=== PATIENT | female | born 1955 | race Caucasian/White ===

== ENCOUNTER 2016-10-18 08:00 | Outpatient (CLI) | payer MEDICAID | END 2016-10-18 23:59 | DX: I10 Essential (primary) hypertension (principal); E78.1 Pure hyperglyceridemia; E11.9 Type 2 diabetes mellitus without complications; E03.9 Hypothyroidism, unspecified ==

== ENCOUNTER 2016-10-25 | Outpatient (CLI) | payer MEDICAID | END 2016-10-25 10:45 | disposition home or self-care (01) | DX: I10 Essential (primary) hypertension (principal) ==

== ENCOUNTER 2016-11-06 11:00 | Outpatient (CLI) | payer MEDICAID | END 2016-11-06 11:01 | disposition home or self-care (01) | DX: D17.23 Benign lipomatous neoplasm of skin and subcutaneous tissue of right leg (principal); L72.3 Sebaceous cyst ==

== ENCOUNTER 2017-01-17 08:44 | Outpatient (CLI) | payer MEDICAID | END 2017-01-17 08:45 | disposition home or self-care (01) | DX: I10 Essential (primary) hypertension (principal); E11.9 Type 2 diabetes mellitus without complications ==

== ENCOUNTER 2017-02-27 09:31 | Emergency (ER) | payer MEDICAID ==
[2017-02-27] MEDS ORDERED: cefTRIAXone 1 GM VIAL IM STA (10:04)
--- NOTE | 2017-02-27 10:06 | ED Physician Documentation ---
PD HPI ANIMAL BITE - Stated complaint Stated Complaint: CAT BITE - Chief complaint Chief Complaint: Wound - History obtained from History obtained from: Patient - History of Present Illness Location of injury(ies): Right hand Details of the event: Cat, Well appearing, Immunized, Provoked, Animal can be observed Timing - onset: How many days ago (2) Timing - duration: Days (2) Timing - details: Gradual onset, Still present Improved by: Rest Worsened by: Moving, Palpating Associated symptoms: Swelling, Discolored Similar symptoms before: Has not had sx before Recently seen: Not recently seen - Additional information Additional information: 62-year-old female with a history of type 2 diabetes hypertension COPD and thyroid disease has been bitten by her cat when she was rescuing out of a tree 2 nights ago. 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 She is here this morning with persistent swelling and pain of her right hand and forearm. Review of Systems Constitutional: reports: Chills, Fatigue. denies: Fever Eyes: denies: Decreased vision Ears: denies: Ear pain Nose: denies: Congestion Throat: denies: Sore throat Cardiac: denies: Chest pain / pressure Respiratory: reports: Cough. denies: Dyspnea GI: denies: Abdominal Pain, Nausea, Vomiting : denies: Dysuria, Frequency Skin: denies: Rash Musculoskeletal: reports: Extremity pain, Extremity swelling. 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 - Present Medications Home Medications: Ambulatory Orders Medication Instructions Recorded Confirmed Levothyroxine [Synthroid] 50 mcg PO QDAC 06/28/13 02/27/17 Levothyroxine [Synthroid] 200 mcg PO QDAC 06/28/13 02/27/17 Lisinopril [Zestril] 20 mg PO DAILY 06/28/13 02/27/17 Metoprolol Succinate [Toprol Xl] 100 mg PO DAILY 06/28/13 02/27/17 Naproxen Sodium [Naprelan] 500 mg PO .FREQ PRN 06/28/13 02/27/17 [place]-3 Acid Ethyl Esters [Lovaza] 1 gm PO DAILY 06/28/13 02/27/17 hydroCHLOROthiazide [Hydrodiuril] 25 mg PO DAILY 06/28/13 02/27/17 SITagliptin [Januvia] 100 mg PO DAILY #30 tablet 11/27/15 02/27/17 Amox/Clav 875/125 [Augmentin] 1 each PO Q12H #20 tablet 02/27/17 Pantoprazole [Protonix] 1 tab PO DAILY 02/27/17 02/27/17 - Allergies Allergies/Adverse Reactions: Allergies Allergy/AdvReac Type Severity Reaction Status Date / Time glimepiride [From Amaryl] Allergy Nausea Verified 02/27/17 09:37 metformin Allergy Respiratory Verified 02/27/17 09:37 - Social History Does the pt smoke?: No Smoking Status: Never smoker Does the pt drink ETOH?: Yes Does the pt have substance abuse?: Yes Substance Use and Type: Marijuana - Immunizations Immunizations are current?: Yes PD ED PE NORMAL - Vitals Vital signs reviewed: Yes (Hypertensive) - General General: Alert and oriented X 3, No acute distress, Well developed/nourished - HEENT HEENT: Atraumatic, PERRL - Neck Neck: Supple, no meningeal sign - Respiratory Respiratory: No respiratory distress - Back Back: No CVA TTP, No spinal TTP - Derm Derm: Normal color, Warm and dry, No rash - Extremities Extremities: Other (There is swelling erythema and tenderness to the dorsum of the right hand over the mid second metacarpal and the swelling and erythema extends to the entire dorsum of the hand and proximal forearm. There is lymphangitic streaking to the elbow.) Results - Vitals Vitals: Vital Signs - 24 hr 02/27/17 09:36 Temperature 36.6 C Heart Rate 77 Respiratory 18 Rate Blood Pressure 147/99 H O2 Saturation 99 Oxygen O2 Source Room air PD MEDICAL DECISION MAKING - ED course Complexity details: reviewed old records, considered differential, d/w patient ED course: 62-year-old female with a cat bite and cellulitis is administered Rocephin IM in the emergency department and we will put her on some Augmentin. Departure - Departure Disposition: 01 Home, Self Care Clinical Impression: Pasteurella cellulitis due to cat bite Condition: Stable Instructions: ED Staph Infec Abx Tx Only, ED Bite Cat Follow-Up: Max Melgar MD [Primary Care Provider] - Prescriptions: Amox/Clav 875/125 [Augmentin] 1 each PO Q12H #20 tablet
[2017-02-27] MEDS ORDERED: TETANUS/DIPHTHERIA/PERTUSSIS 0.5 ML SYRINGE IM ONE ×2 (10:08→10:17)
[2017-02-27] MEDS ORDERED: LIDOCAINE 1% 2 ML VIAL ONE (10:17)
[2017-02-27] MEDS ORDERED: cefTRIAXone 1 GM VIAL ONE (10:17)
[2017-02-27 10:42] VITALS: BP 140/81
== END 2017-02-27 10:53 | disposition home or self-care (01) ==
LOC: ED 09:31
DX: S61.451A Open bite of right hand, initial encounter (principal); L03.113 Cellulitis of right upper limb; W55.01XA Bitten by cat, initial encounter; Y93.K9 Activity, other involving animal care; Z23 Encounter for immunization; I10 Essential (primary) hypertension; E11.9 Type 2 diabetes mellitus without complications; E03.9 Hypothyroidism, unspecified; Z96.649 Presence of unspecified artificial hip joint; Z79.84 Long term (current) use of oral hypoglycemic drugs
CPT/HCPCS: 90471; 96372; 99283

== ENCOUNTER 2017-11-11 12:17 | Outpatient (CLI) | payer MEDICAID | END 2017-11-11 12:18 | disposition critical access hospital (66) | LOC: EMS 12:17 | PROVIDERS: ATTEND Surgery | DX: R03.0 Elevated blood-pressure reading, without diagnosis of hypertension (principal) | CPT/HCPCS: A0425; A0429 ==

== ENCOUNTER 2017-11-11 12:35 | Emergency (ER) | payer MEDICAID ==
--- NOTE | 2017-11-11 13:22 | ED Physician Documentation ---
PD HPI DYSPNEA - Stated complaint Stated Complaint: HTN - Chief complaint Chief Complaint: Resp - History obtained from History obtained from: Patient - History of Present Illness Timing - onset: How many days ago (several days) Timing - onset during: Other (cough with URI symptoms) Timing - duration: Days Timing - details: Gradual onset, Still present Inciting event(s): URI (cough and congestion with sore throat and runny nose. Has strong coug and is noting lower right abd pain in area of prior mesh repair of hernia. Feels like this is bulging with cough. She had also had injury stepping through floorboard with some pull/muscle strain of abd.) Worsened by: Coughing Associated symptoms: Fever, Cough, Wheezing, Other (lower abd pain, and noted her BP was elevated as well.). No: Hemoptysis, Chest pain / discomfort Similar symptoms before: Has not had sx before Recently seen: Not recently seen Review of Systems Constitutional: reports: Fever, Chills, Myalgias Nose: reports: Rhinorrhea / runny nose, Congestion Throat: reports: Sore throat Cardiac: denies: Chest pain / pressure Respiratory: reports: Dyspnea, Cough, Wheezing GI: reports: Abdominal Pain. denies: Nausea, Vomiting, Diarrhea Skin: denies: Rash, Lesions Musculoskeletal: denies: Extremity swelling Neurologic: reports: Generalized weakness. 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 - Present Medications Home Medications: Ambulatory Orders Medication Instructions Recorded Confirmed Levothyroxine [Synthroid] 50 mcg PO QDAC 06/28/13 11/11/17 Levothyroxine [Synthroid] 200 mcg PO QDAC 06/28/13 11/11/17 Lisinopril [Zestril] 20 mg PO DAILY 06/28/13 11/11/17 Metoprolol Succinate [Toprol Xl] 100 mg PO DAILY 06/28/13 11/11/17 Naproxen Sodium [Naprelan] 500 mg PO .FREQ PRN 06/28/13 11/11/17 [place]-3 Acid Ethyl Esters [Lovaza] 1 gm PO DAILY 06/28/13 11/11/17 hydroCHLOROthiazide [Hydrodiuril] 25 mg PO DAILY 06/28/13 11/11/17 SITagliptin [Januvia] 100 mg PO DAILY #30 tablet 11/27/15 11/11/17 Amox/Clav 875/125 [Augmentin] 1 each PO Q12H #20 tablet 02/27/17 11/11/17 Pantoprazole [Protonix] 1 tab PO DAILY 02/27/17 11/11/17 Benzonatate [Tessalon] 100 mg PO TID PRN #25 capsule 11/11/17 Dexamethasone [Decadron] 4 mg PO DAILY #5 tablet 11/11/17 HYDROcod/ACETAM 5/325 [[place] 5/325] 1 tab PO Q6H PRN #15 tablet 11/11/17 Metoclopramide [Reglan] 10 mg PO Q6H PRN #20 tablet 11/11/17 - Allergies Allergies/Adverse Reactions: Allergies Allergy/AdvReac Type Severity Reaction Status Date / Time glimepiride [From Amaryl] Allergy Nausea Verified 11/11/17 13:01 metformin Allergy Respiratory Verified 11/11/17 13:01 promethazine [From Phenergan] AdvReac Emesis Verified 11/11/17 15:08 - Social History Does the pt smoke?: No Smoking Status: Never smoker Does the pt drink ETOH?: Yes Does the pt have substance abuse?: Yes - Immunizations Immunizations are current?: Yes - POLST Patient has POLST: No PD ED PE NORMAL - Vitals Vital signs reviewed: Yes - General General: Alert and oriented X 3, No acute distress, Well developed/nourished - HEENT HEENT: Ears normal, Moist mucous membranes, Pharynx benign - Neck Neck: Supple, no meningeal sign, No adenopathy - Cardiac Cardiac: RRR (tachycardic but regular. ), No murmur - Respiratory Respiratory: No respiratory distress, Other (wheezing noted scattered. No coarse sounds. ) - Abdomen Abdomen: Normal bowel sounds, Soft, Non distended, No organomegaly, Other ( tenderness without bulging around RLQ area with prior surgical scar noted. Some mild general protrusion below the mesh area with coughing. ) - Female Female : Deferred - Rectal Rectal: Deferred - Back Back: No CVA TTP - Derm Derm: Normal color, Warm and dry - Extremities Extremities: No deformity, No tenderness to palpate, Normal ROM s pain, No edema , No calf tenderness / cord - Neuro Neuro: Alert and oriented X 3, No motor deficit, Normal speech Results - Vitals Vitals: Oxygen O2 Source Room air - Rads (name of study) abd CT Radiology: Prelim report reviewed (no signs of hernia. There is thinning of muscle around the prior mesh surgical repair. ) chest xray Radiology: Prelim report reviewed (no infiltrates) PD MEDICAL DECISION MAKING - ED course Complexity details: reviewed results, considered differential (she has strong cough with URI symptoms, and was feeling pressure around prior mesh repair of hernia. Concerned for recurrent hernia. This area is hurting. Also noted her BP to be elevated. ), d/w patient Departure - Departure Disposition: 01 Home, Self Care Clinical Impression: Bronchitis Abdominal pain Qualifiers: Abdominal location: lower abdomen, unspecified Qualified Code(s): R10.30 - Lower abdominal pain, unspecified Hypertension Qualifiers: Hypertension type: unspecified secondary hypertension Qualified Code(s): I15.9 - Secondary hypertension, unspecified Condition: Stable Record reviewed to determine appropriate education?: Yes Instructions: ED Upper Resp Infec Abx Tx Follow-Up: Max Melgar MD [Primary Care Provider] - Jorge A Zamudio MD [Provider Admit Priv/Credential] - Prescriptions: Benzonatate [Tessalon] 100 mg PO TID PRN #25 capsule PRN Reason: Cough Dexamethasone [Decadron] 4 mg PO DAILY #5 tablet HYDROcod/ACETAM 5/325 [[place] 5/325] 1 tab PO Q6H PRN #15 tablet PRN Reason: Pain Metoclopramide [Reglan] 10 mg PO Q6H PRN #20 tablet PRN Reason: Nausea / Vomiting Comments: Continue usual medications for blood pressure and all else. The CT scan of the abdomen showed there to be some weakness of the abdominal muscles around the prior hernia repair and the mesh but no true hernia now. Follow-up with surgery regarding any potential treatment of it. For the cough, since you have sensitivities to the inhalers, we will choose those. Take Tessalon if needed for cough and hydrocodone if needed for cough and belly pain can be used for either. Decadron steroid will help with the irritation in the bronchioles and decrease the cough as well. Follow-up with your primary care in the next several days. Discharge Date/Time: 11/11/17 16:45
[2017-11-11] MEDS ORDERED: BENZONATATE 100 MG CAPSULE PO STA (13:35)
[2017-11-11] MEDS ORDERED: HYDROcod/ACETAM 5/325 MG TABLET PO STA (13:35)
[2017-11-11] MEDS ORDERED: DEXAMETHASONE 10 MG/ML VIAL PO STA (13:35)
[2017-11-11] MEDS ORDERED: LEVALBUTEROL 1.25 MG/3 ML NEB INH STA (13:35)
--- NOTE | 2017-11-11 13:53 | XRAY Preliminary Report ---
Exam: XR CHEST 2 VIEW X-RAY IMPRESSION: No acute cardiopulmonary abnormality. [facility] SITE ID: [id number]
--- NOTE | 2017-11-11 13:54 | XRAY Report ---
EXAM: CHEST RADIOGRAPHY EXAM DATE: 11/11/2017 01:17 PM. CLINICAL HISTORY: Cough. COMPARISON: CT chest with contrast 12/19/2006. TECHNIQUE: 2 views. FINDINGS: Lungs/Pleura: No focal opacities evident. No pleural effusion. No pneumothorax. Mediastinum: Heart and mediastinal contours are unremarkable. Other: None. IMPRESSION: No acute cardiopulmonary abnormality. [facility] Referring Provider Line: [phone] SITE ID: [id number]
[2017-11-11] MEDS ORDERED: METOPROLOL SUCCINATE 50 MG TABLET PO STA (14:21)
[2017-11-11] MEDS ORDERED: ONDANSETRON ODT 4 MG TABLET TL STA (14:57)
[2017-11-11] MEDS ORDERED: PROMETHAZINE 25 MG/1 ML VIAL IM STA (14:57)
--- NOTE | 2017-11-11 15:02 | CT Report ---
EXAM: CT ABDOMEN AND PELVIS EXAM DATE: 11/11/2017 02:22 PM. CLINICAL HISTORY: RLQ pain after fall, ? Recurrent hernia. COMPARISONS: CT KUB 01/11/2016. TECHNIQUE: Routine helical CT imaging was performed through the abdomen and pelvis while the patient performed the Valsalva maneuver. IV contrast: No. Enteric contrast: No. Reconstructions: Coronal and sagittal. In accordance with CT protocol optimization, one or more of the following dose reduction techniques w ere utilized for this exam: automated exposure control, adjustment of mA and/or KV based on patient s ize, or use of iterative reconstructive technique. FINDINGS: Lung Bases: Unremarkable. Liver: Unremarkable except for minimal focal fatty infiltration in the medial left lobe adjacent to t he fissure for the ligamentum teres. Gallbladder/Bile Ducts: Unremarkable. Spleen: Unremarkable. Pancreas: Unremarkable. Adrenal Glands: Normal. Kidneys: 2 mm and 3 mm calculi in the anterior lower left kidney. No hydronephrosis. Right kidney unr emarkable. Peritoneal Cavity/Bowel: Unopacified stomach and small bowel are nondistended. There is an anastomoti c staple line at the upper ascending ileocolic anastomosis. There is no significant formed stool in t he colon. There is minimal sigmoid colon diverticulosis. There is no pericolonic fat stranding. There is an approximately 3.5 cm anterior rectocele. There is no lymphadenopathy, ascites, or pneumoperito neum. Pelvic Organs: The bladder is empty. Uterus is surgically absent. No gross adnexal masses are identif ied. Vasculature: There is mild aortoiliac atherosclerotic calcification without abnormal dilation. Bones: There is mild multilevel lower thoracic and upper lumbar degenerative disk disease. There is a left total hip arthroplasty causing beam hardening artifact. Other: As before, there is mid to lower abdominal diastases recti. As before, there is mesh with meta llic anchors along the deep fascia of the mid to lower anterior abdominal wall. There is mild broad a nterior bulging of intra-abdominal fat between diastatic rectus muscles deep to the mesh, similar to before, without discrete hernia. IMPRESSION: 1. Mid to lower midline anterior abdominal wall diastases recti and prior mesh repair. There is mild anterior bulging of intra-abdominal contents between the diastatic rectus muscles as before without d iscrete hernia. 2. Approximately 3.5 cm anterior rectocele. [facility] Referring Provider Line: [phone] SITE ID: [id number]
--- NOTE | 2017-11-11 15:02 | CT Preliminary Report ---
Exam: CT ABDOMEN/PELVIS W/O IMPRESSION: 1. Mid to lower midline anterior abdominal wall diastases recti and prior mesh repair. There is mild anterior bulging of intra-abdominal contents between the diastatic rectus muscles as before without d iscrete hernia. 2. Approximately 3.5 cm anterior rectocele. [facility] SITE ID: [id number]
[2017-11-11] MEDS ORDERED: diphenhydrAMINE ELIXIR 25 MG/10 ML UDC PO STA (15:15)
[2017-11-11 16:11] VITALS: BP 174/118
== END 2017-11-11 16:45 | disposition home or self-care (01) ==
LOC: EDUNIT# → ED 12:35
DX: J40 Bronchitis, not specified as acute or chronic (principal); J44.9 Chronic obstructive pulmonary disease, unspecified; R10.30 Lower abdominal pain, unspecified; E11.9 Type 2 diabetes mellitus without complications; E03.9 Hypothyroidism, unspecified; Z96.649 Presence of unspecified artificial hip joint
CPT/HCPCS: 71046; 74176; 99283; A9270; Q0162; 94640

== ENCOUNTER 2017-12-03 08:08 | Outpatient (CLI) | payer MEDICAID ==
[2017-12-03 13:08] LABS: CREATININE 1.1 mg/dL (0.4-1.0)
[2017-12-03 13:51] LABS: HB2 TOTAL 12.9 g/dL; HEMOGLOBIN A1C 1.25 g/dL
== END 2017-12-03 08:09 | disposition home or self-care (01) ==
LOC: LAB.N 08:08
PROVIDERS: ATTEND Family Medicine
DX: E11.9 Type 2 diabetes mellitus without complications (principal)
CPT/HCPCS: 36415; 80048; 83036

== ENCOUNTER 2017-12-03 14:10 | Outpatient (CLI) | payer MEDICAID ==
--- NOTE | 2017-12-04 13:03 | XRAY Report ---
RIGHT KNEE THREE VIEWS: 12/03/2017 HISTORY: Knee pain. COMPARISON: None. FINDINGS: Three views of the right knee show medial and lateral meniscal chondrocalcinosis. There is narrowing and spurring of the lateral greater than medial knee joint. Mild patellar articular surface spurring. No fracture or malalignment. Possible small joint effusion. Cannot exclude a Thomas's cyst. Vascular calcification present. IMPRESSION: MILD TO MODERATE TRICOMPARTMENTAL DEGENERATIVE CHANGE RIGHT KNEE, MOST MARKED LATERAL KNEE JOINT. TD: 12/04/2017 13:02 [facility]
== END 2017-12-03 14:11 | disposition home or self-care (01) ==
LOC: DI.N 14:10
PROVIDERS: ATTEND Family Medicine
DX: M17.11 Unilateral primary osteoarthritis, right knee (principal)

== ENCOUNTER 2018-03-13 11:30 | Outpatient (CLI) | payer MEDICAID | END 2018-03-13 11:31 | disposition home or self-care (01) | LOC: LAB.R 11:30 | PROVIDERS: ATTEND Family Medicine | DX: M25.562 Pain in left knee (principal) ==

== ENCOUNTER 2018-04-15 10:13 | Outpatient (CLI) | payer MEDICAID ==
[2018-04-15 12:05] LABS: BASOPHILS % (AUTO) 0.6 %; EOSINOPHILS # (AUTO) 0.1 10^3/uL (0.0-0.7); EOSINOPHILS % (AUTO) 1.4 %; HGB - HEMOGLOBIN 11.5 g/dL (12.0-16.0); LYMPHOCYTES # (AUTO) 2.1 10^3/uL (1.5-3.5); MEAN CORPUSCULAR HEMOGLOBIN 29.4 pg (27.0-31.0); MEAN CORPUSCULAR HGB CONC 34.6 g/dL (32.0-36.0); MEAN CORPUSCULAR VOLUME 84.9 fL (81.0-99.0); MEAN PLATELET VOLUME 8.6 fL (7.9-10.8); MONOCYTES # (AUTO) 0.4 10^3/uL (0.0-1.0); MONOCYTES % (AUTO) 5.1 %; NEUTROPHILS # (AUTO) 5.4 10^3/uL (1.5-6.6); NEUTROPHILS % (AUTO) 66.9 %; PLT - PLATELET COUNT 345 10^3/uL (130-450)
[2018-04-15 12:40] LABS: ALBUMIN/GLOBULIN RATIO 1.1 (1.0-2.2); BILIRUBIN,TOTAL 0.4 mg/dL (0.2-1.0); CALCIUM 9.5 mg/dL (8.5-10.3); TOTAL PROTEIN 7.6 g/dL (6.7-8.2)
[2018-04-15 12:44] LABS: HB2 TOTAL 11.4 g/dL; HEMOGLOBIN A1C 1.04 g/dL; HEMOGLOBIN A1C % 10.5 % (4.6-6.2)
[2018-04-15 12:50] LABS: THYROID STIMULATING HORMONE < 0.08 uIU/mL (0.34-5.60)
[2018-04-15 12:52] LABS: FREE T4 (FREE THYROXINE) 1.72 ng/dL (0.58-1.64)
== END 2018-04-15 10:14 | disposition home or self-care (01) ==
LOC: LAB.N 10:13
PROVIDERS: ATTEND Family Medicine
DX: E11.65 Type 2 diabetes mellitus with hyperglycemia (principal); E78.1 Pure hyperglyceridemia; E03.9 Hypothyroidism, unspecified
CPT/HCPCS: 36415; 80053; 83036; 84439; 84443; 85025

== ENCOUNTER 2018-07-31 08:00 | Outpatient (CLI) | payer MEDICAID ==
[2018-07-31 19:32] LABS: CALCIUM 9.5 mg/dL (8.5-10.3)
[2018-07-31 19:43] LABS: THYROID STIMULATING HORMONE 4.9 uIU/mL (0.34-5.60)
[2018-07-31 19:45] LABS: FREE T4 (FREE THYROXINE) 0.94 ng/dL (0.58-1.64)
== END 2018-07-31 23:59 | disposition home or self-care (01) ==
LOC: LAB.N 08:00
PROVIDERS: ATTEND Family Medicine
DX: E03.9 Hypothyroidism, unspecified (principal); E11.65 Type 2 diabetes mellitus with hyperglycemia
CPT/HCPCS: 36415; 80048; 84439; 84443

== ENCOUNTER 2018-09-17 08:00 | Outpatient (CLI) | payer MEDICAID ==
[2018-09-17 19:25] LABS: HB2 TOTAL 12.9 g/dL; HEMOGLOBIN A1C 0.82 g/dL
== END 2018-09-17 23:59 | disposition home or self-care (01) ==
LOC: LAB.N 08:00
PROVIDERS: ATTEND Nurse Practitioner
DX: E11.65 Type 2 diabetes mellitus with hyperglycemia (principal)
CPT/HCPCS: 36415; 83036

== ENCOUNTER 2018-09-17 14:36 | Outpatient (CLI) | payer MEDICAID ==
--- NOTE | 2018-09-18 15:23 | XRAY Report ---
Reason: DEGENERATIVE JOINT DISEASE Procedure Date: 09/17/2018 Accession Number: [id number] / [id number] Procedure: XRN - Knee 3 View BILAT CPT Code: FULL RESULT: EXAMS: 1. Right Knee Radiography 2. Left Knee Radiography EXAM DATE:09/17/2018 03:02 PM. CLINICAL HISTORY:DEGENERATIVE JOINT DISEASE. COMPARISON: KNEE 3 VIEW RT 12/03/2017 2:30 PM. TECHNIQUE: 3 views each. FINDINGS: Right Knee: Bones: No acute fracture or dislocation. Joints: Moderate to severe degenerative changes of the lateral compartment, including joint space narrowing and marginal osteophyte formation. Mild to moderate degenerative changes of the patellofemoral compartment. Mild narrowing of the medial compartment. Possible calcified intracapsular bodies in the superior joint recess. Small joint effusion. Soft Tissues: Atherosclerotic plaques in the popliteal artery. Left Knee: Bones: No acute fracture or dislocation. Joints: There is mild to moderate tricompartmental degenerative joint disease, which is mostly manifested by joint space narrowing. No significant osteophyte formation. No joint effusion. Soft Tissues: Normal. No soft tissue swelling. IMPRESSION: No acute fracture or dislocation of the right or left knees. Bilateral tricompartmental degenerative joint disease, left worse than right, as described above. Small right knee joint effusion. Possible calcified intracapsular bodies in the right knee. Consider further evaluation with MRI as clinically indicated. [facility]
== END 2018-09-17 14:37 | disposition home or self-care (01) ==
LOC: DI.N 14:36
PROVIDERS: ATTEND Nurse Practitioner
DX: M17.0 Bilateral primary osteoarthritis of knee (principal)

== ENCOUNTER 2018-09-17 15:39 | Outpatient (CLI) | payer MEDICAID | END 2018-09-17 15:40 | disposition critical access hospital (66) | LOC: EMS 15:39 | PROVIDERS: ATTEND Surgery | DX: S89.92XA Unspecified injury of left lower leg, initial encounter (principal); W01.0XXA Fall on same level from slipping, tripping and stumbling without subsequent striking against object, initial encounter; Y93.02 Activity, running; Y92.481 Parking lot as the place of occurrence of the external cause | CPT/HCPCS: A0425; A0429 ==

== ENCOUNTER 2018-11-03 08:02 | Outpatient (CLI) | payer MEDICAID ==
[2018-11-03 20:09] LABS: ALBUMIN 4.2 g/dL (3.2-5.5); ALBUMIN/GLOBULIN RATIO 1.4 (1.0-2.2); ALKALINE PHOSPHATASE 61 IU/L (42-121); ALT ALANINE AMINOTRANSFERASE 17 IU/L (10-60); AST ASPARTATE AMINOTRANSFERASE 21 IU/L (10-42); BILIRUBIN,TOTAL 0.6 mg/dL (0.2-1.0); BUN - BLOOD UREA NITROGEN 26 mg/dL (6-20); CALCIUM 9.7 mg/dL (8.5-10.3); CARBON DIOXIDE - CO2 25 mmol/L (21-32); CHLORIDE 101 mmol/L (101-111); CHOL/HDL RATIO 5.8 (<4.4); CHOLESTEROL 210 mg/dL; CREATININE 1.1 mg/dL (0.4-1.0); GFR - MDRD 50 (>89); GLUCOSE 126 mg/dL (70-100); HDL CHOLESTEROL 36 mg/dL; SODIUM 137 mmol/L (135-145); TOTAL PROTEIN 7.2 g/dL (6.7-8.2)
[2018-11-03 20:21] LABS: BILIRUBIN,URINE NEGATIVE (NEGATIVE); GLUCOSE, URINE (UA) NEGATIVE (NEGATIVE); KETONES,URINE (UA) NEGATIVE (NEGATIVE); LEUKOCYTE ESTERASE, URINE TRACE (NEGATIVE); NITRITE,URINE NEGATIVE (NEGATIVE); OCCULT BLOOD,URINE TRACE-INTA (NEGATIVE); PROTEIN,URINE 100 mg/dL (NEGATIVE); UROBILINOGEN,URINE 0.2 (NORMAL) E.U./dL (NORMAL)
[2018-11-03 20:35] LABS: BASOPHILS # (AUTO) 0.1 10^3/uL (0.0-0.1); BASOPHILS % (AUTO) 1.1 %; EOSINOPHILS # (AUTO) 0.1 10^3/uL (0.0-0.7); EOSINOPHILS % (AUTO) 1.1 %; HGB - HEMOGLOBIN 12.5 g/dL (12.0-16.0); LYMPHOCYTES % (AUTO) 24.1 %; MEAN CORPUSCULAR HEMOGLOBIN 29.3 pg (27.0-31.0); MEAN CORPUSCULAR HGB CONC 33.4 g/dL (32.0-36.0); MEAN CORPUSCULAR VOLUME 87.7 fL (81.0-99.0); MONOCYTES # (AUTO) 0.4 10^3/uL (0.0-1.0); MONOCYTES % (AUTO) 5.4 %; NEUTROPHILS # (AUTO) 5.7 10^3/uL (1.5-6.6); NEUTROPHILS % (AUTO) 68.3 %; PLT - PLATELET COUNT 279 10^3/uL (130-450); RED BLOOD COUNT 4.26 10^6/uL (4.20-5.40); RED CELL DISTRIBUTION WIDTH 13.7 % (12.0-15.0); WHITE BLOOD COUNT 8.3 x10^3/uL (4.8-10.8)
[2018-11-03 20:43] LABS: CLARITY,URINE CLOUDY (CLEAR)
[2018-11-03 20:44] LABS: BACTERIA,URINE Rare /HPF (None Seen); RBC,URINE 0-5 /HPF (0-5); SQUAMOUS EPITHELIAL CELL,UR MANY Squamous (<= Few)
[2018-11-03 20:56] LABS: LDL CHOLESTEROL,DIRECT 106 mg/dL; LDLD/HDL RATIO 2.9 (<4.4)
[2018-11-03 21:10] LABS: CREATININE,URINE 137.6 mg/dL; MICROALBUM/CREATININE RATIO,UR 763.1 ug/mg (<30.0)
[2018-11-03 21:25] LABS: HEMOGLOBIN A1C 0.93 g/dL; HEMOGLOBIN A1C % 8.2 % (4.6-6.2)
== END 2018-11-03 23:59 | disposition home or self-care (01) ==
LOC: LAB.N 08:02
PROVIDERS: ATTEND Nurse Practitioner
DX: E11.65 Type 2 diabetes mellitus with hyperglycemia (principal); R30.0 Dysuria; I10 Essential (primary) hypertension; Z79.4 Long term (current) use of insulin
CPT/HCPCS: 36415; 80053; 80061; 81001; 82043; 82570; 83036; 83721; 84443; 85025; 87086

== ENCOUNTER 2019-05-17 10:29 | Outpatient (CLI) | payer MEDICAID ==
[2019-05-17 13:36] LABS: HB2 TOTAL 11.8 g/dL; HEMOGLOBIN A1C 0.73 g/dL; HEMOGLOBIN A1C % 7.8 % (4.6-6.2)
== END 2019-05-17 23:59 | disposition home or self-care (01) ==
LOC: LAB.N 10:29
PROVIDERS: ATTEND Nurse Practitioner Gerontology
DX: E11.8 Type 2 diabetes mellitus with unspecified complications (principal); Z79.4 Long term (current) use of insulin
CPT/HCPCS: 36415; 83036

== ENCOUNTER 2019-09-08 08:00 | Outpatient (CLI) | payer MEDICAID ==
[2019-09-08 18:14] LABS: BASOPHILS # (AUTO) 0.1 10^3/uL (0.0-0.1); BASOPHILS % (AUTO) 0.4 %; EOSINOPHILS # (AUTO) 0.1 10^3/uL (0.0-0.7); HGB - HEMOGLOBIN 11.1 g/dL (12.0-16.0); LYMPHOCYTES # (AUTO) 1.7 10^3/uL (1.5-3.5); LYMPHOCYTES % (AUTO) 14.5 %; MEAN CORPUSCULAR HGB CONC 32.3 g/dL (32.0-36.0); MEAN CORPUSCULAR VOLUME 89.8 fL (81.0-99.0); MEAN PLATELET VOLUME 10.6 fL (7.9-10.8); MONOCYTES # (AUTO) 0.9 10^3/uL (0.0-1.0); MONOCYTES % (AUTO) 7.5 %; NEUTROPHILS # (AUTO) 8.9 10^3/uL (1.5-6.6); NEUTROPHILS % (AUTO) 76.2 %; PLT - PLATELET COUNT 433 10^3/uL (130-450); RED BLOOD COUNT 3.83 10^6/uL (4.20-5.40); RED CELL DISTRIBUTION WIDTH 12.9 % (12.0-15.0); WHITE BLOOD COUNT 11.7 x10^3/uL (4.8-10.8)
[2019-09-08 18:20] LABS: ALBUMIN 3.9 g/dL (3.2-5.5); ALBUMIN/GLOBULIN RATIO 1.1 (1.0-2.2); BILIRUBIN,TOTAL 0.7 mg/dL (0.2-1.0); CALCIUM 9.6 mg/dL (8.5-10.3); CREATININE 1.3 mg/dL (0.4-1.0); TOTAL PROTEIN 7.6 g/dL (6.7-8.2)
== END 2019-09-08 23:59 | disposition home or self-care (01) ==
LOC: LAB.N 08:00
PROVIDERS: ATTEND Family Medicine
DX: N20.0 Calculus of kidney (principal); N39.0 Urinary tract infection, site not specified
CPT/HCPCS: 36415; 80053; 81001; 81003; 85025; 87086

== ENCOUNTER 2019-10-27 10:30 | Outpatient (CLI) | payer MEDICAID | END 2019-10-27 23:59 | disposition home or self-care (01) | LOC: LAB.R 10:30 | PROVIDERS: ATTEND Family Medicine | DX: N39.0 Urinary tract infection, site not specified (principal) | CPT/HCPCS: 87086 ==

== ENCOUNTER 2019-12-23 08:00 | Outpatient (CLI) | payer MEDICAID ==
[2019-12-23 17:58] LABS: ALBUMIN 4.2 g/dL (3.2-5.5); ALBUMIN/GLOBULIN RATIO 1.3 (1.0-2.2); BILIRUBIN,TOTAL 0.3 mg/dL (0.2-1.0); CALCIUM 9.6 mg/dL (8.5-10.3); CREATININE 0.9 mg/dL (0.4-1.0); PHOSPHORUS 3.9 mg/dL (2.5-4.6); TOTAL PROTEIN 7.5 g/dL (6.7-8.2); URIC ACID 4.4 mg/dL (2.6-7.2)
[2019-12-23 18:03] LABS: BILIRUBIN,URINE NEGATIVE (NEGATIVE); GLUCOSE, URINE (UA) NEGATIVE (NEGATIVE); KETONES,URINE (UA) NEGATIVE (NEGATIVE); LEUKOCYTE ESTERASE, URINE TRACE (NEGATIVE); NITRITE,URINE NEGATIVE (NEGATIVE); OCCULT BLOOD,URINE NEGATIVE (NEGATIVE); PROTEIN,URINE NEGATIVE (NEGATIVE); UROBILINOGEN,URINE 0.2 (NORMAL) E.U./dL (NORMAL)
[2019-12-23 18:07] LABS: CLARITY,URINE CLEAR (CLEAR)
[2019-12-23 18:30] LABS: BACTERIA,URINE None Seen /HPF (None Seen); RBC,URINE None Seen /HPF (0-5); SQUAMOUS EPITHELIAL CELL,UR FEW Squamous (<= Few)
== END 2019-12-23 23:59 | disposition home or self-care (01) ==
LOC: LAB.WCP 08:00
PROVIDERS: ATTEND Internal Medicine Nephrology
DX: N20.0 Calculus of kidney (principal); N18.3 Chronic kidney disease, stage 3 (moderate)
CPT/HCPCS: 36415; 80053; 81001; 83970; 84100; 84550; 87086

== ENCOUNTER 2019-12-30 12:43 | Outpatient (CLI) | payer MEDICAID ==
--- NOTE | 2019-12-30 18:09 | MRI Report ---
Reason: RT KNEE JOINT PAIN Procedure Date: 12/30/2019 Accession Number: [id number] / [id number] Procedure: MRI - Knee RT W/O CPT Code: Final Report FULL RESULT: EXAM: RIGHT KNEE MRI WITHOUT CONTRAST EXAM DATE: 12/30/2019 01:44 PM. CLINICAL HISTORY: Right knee joint pain. COMPARISON: KNEE 3 VIEW BILAT 09/17/2018 2:53 PM. TECHNIQUE: Multiplanar, multisequence T1-weighted and fluid-sensitive sequences of the knee without contrast. Other: None. FINDINGS: Cruciate ligaments: There is thickening and heterogenous increased intrasubstance signal within the otherwise intact anterior cruciate ligament. The posterior cruciate ligament appears intact. Medial meniscus: Intact. No tear is identified. Lateral meniscus: Complex tears and degeneration throughout the body and anterior horn. Ill-defined horizontal tear at the posterior horn with intrasubstance degeneration. Irregular lateral lobulated meniscal cyst formation extends superiorly. Collateral ligaments: The medial and fibular collateral ligaments appear intact. Bones and articular surfaces: Severe cartilage loss in the weightbearing lateral compartment. A small amount of patchy subchondral marrow edema. Mild cartilage thinning and surface irregularity in the medial and patellofemoral compartments. Small joint effusion. Synovitis at the lateral patellofemoral recess. Moderate sized popliteal cyst containing multiple loose bodies. Lobulated superior extension of the popliteal cyst superficial to the medial head gastrocnemius. Extensor mechanism: The patellar tendon and quadriceps insertion appear intact. IMPRESSION: 1. Lateral meniscus tears including complex tears and degeneration throughout the body and anterior horn as well as horizontal tear at the posterior horn. Lateral and superior meniscal cyst formation. 2. Severe lateral compartment osteoarthritis. 3. Moderate-sized popliteal cyst containing loose bodies. 4. Small joint effusion with synovitis in the lateral patellofemoral recess. 5. Mucoid degeneration and/or scarring involving the anterior cruciate ligament. [facility]
== END 2019-12-30 12:44 | disposition home or self-care (01) ==
LOC: DI 12:43
PROVIDERS: ATTEND Family Medicine
DX: S83.271A Complex tear of lateral meniscus, current injury, right knee, initial encounter (principal); S83.281A Other tear of lateral meniscus, current injury, right knee, initial encounter; M17.11 Unilateral primary osteoarthritis, right knee; M71.21 Synovial cyst of popliteal space [Baker], right knee; M25.461 Effusion, right knee; M65.9 Synovitis and tenosynovitis, unspecified

== ENCOUNTER 2020-05-19 08:00 | Outpatient (CLI) | payer MEDICAID ==
[2020-05-19 12:02] LABS: CALCIUM 9.1 mg/dL (8.5-10.3); CREATININE 1.3 mg/dL (0.4-1.0)
[2020-05-19 12:37] LABS: HEMOGLOBIN A1c% 7.6 % (4.27-6.07)
[2020-05-19 12:58] LABS: MICROALBUM/CREATININE RATIO,UR 1546.4 ug/mg (<30.0)
== END 2020-05-19 08:01 | disposition home or self-care (01) ==
LOC: LAB.WCP 08:00
PROVIDERS: ATTEND Family Medicine
DX: E11.65 Type 2 diabetes mellitus with hyperglycemia (principal); Z79.4 Long term (current) use of insulin
CPT/HCPCS: 36415; 80048; 82043; 82570; 83036

== ENCOUNTER 2020-07-29 09:31 | Outpatient (CLI) | payer MEDICAID | END 2020-07-29 09:32 | disposition critical access hospital (66) | LOC: EMS 09:31 | PROVIDERS: ATTEND Surgery | DX: R10.30 Lower abdominal pain, unspecified (principal); R11.0 Nausea | CPT/HCPCS: A0425; A0427 ==

== ENCOUNTER 2020-07-29 09:56 | Emergency (ER) | payer MEDICAID ==
[2020-07-29] MEDS ORDERED: MORPHINE 10 MG/ML VIAL IVP STA (10:26)
[2020-07-29 10:41] LABS: BASOPHILS # (AUTO) 0.1 10^3/uL (0.0-0.1); BASOPHILS % (AUTO) 0.5 %; EOSINOPHILS # (AUTO) 0.1 10^3/uL (0.0-0.7); EOSINOPHILS % (AUTO) 0.9 %; HGB - HEMOGLOBIN 11.7 g/dL (12.0-16.0); LYMPHOCYTES # (AUTO) 1.4 10^3/uL (1.5-3.5); LYMPHOCYTES % (AUTO) 10.6 %; MEAN CORPUSCULAR HEMOGLOBIN 29.5 pg (27.0-31.0); MEAN CORPUSCULAR VOLUME 89.6 fL (81.0-99.0); MEAN PLATELET VOLUME 9.8 fL (7.9-10.8); MONOCYTES # (AUTO) 0.6 10^3/uL (0.0-1.0); MONOCYTES % (AUTO) 4.4 %; NEUTROPHILS # (AUTO) 11.3 10^3/uL (1.5-6.6); NEUTROPHILS % (AUTO) 83.2 %; PLT - PLATELET COUNT 304 10^3/uL (130-450); RED BLOOD COUNT 3.96 10^6/uL (4.20-5.40); RED CELL DISTRIBUTION WIDTH 13.3 % (12.0-15.0); WHITE BLOOD COUNT 13.6 x10^3/uL (4.8-10.8)
[2020-07-29 10:55] LABS: ALBUMIN 3.6 g/dL (3.2-5.5); ALBUMIN/GLOBULIN RATIO 1.2 (1.0-2.2); BILIRUBIN,TOTAL 0.7 mg/dL (0.2-1.0); CREATININE 1.8 mg/dL (0.4-1.0); TOTAL PROTEIN 6.5 g/dL (6.7-8.2)
[2020-07-29] MEDS ORDERED: SODIUM CHLORIDE 0.9% 1,000 ML IV STA ×2 (10:56)
--- NOTE | 2020-07-29 10:56 | ED Physician Documentation ---
PD HPI ABD PAIN - Stated complaint Stated Complaint: RT FLANK PX - Chief complaint Chief Complaint: Abd Pain - History obtained from History obtained from: Patient - History of Present Illness Timing - onset: How many days ago (3) Timing - duration: Days (3) Pain level max: 9 Pain level now: 7 Quality: Aching, Pain Location: All over / everywhere Associated symptoms: No: Fever, Nausea, Vomiting, Hematemesis, Diarrhea, Constipation, Melena, Hematochezia, Dysuria, Hematuria Recently seen: Not recently seen - Additional information Additional information: 65-year-old female presents to the emergency department with abdominal pain for the past 3 days. She states it radiates from her back to her abdomen. States it is on both sides. Worse with movement. Nothing makes it better. She states she has never had pain like this before. She states she did have a "kidney surgery". She does not know what surgery was performed or why the surgery was performed. She states this was done at [facility]. Review of Systems Constitutional: denies: Fever, Chills Respiratory: denies: Cough : denies: Unable to Void, Incontinent Skin: denies: Rash Musculoskeletal: denies: Neck pain Neurologic: denies: Focal weakness, Numbness, Headache PD PAST MEDICAL HISTORY - Past Medical History Cardiovascular: Hypertension Respiratory: Asthma, COPD, Sleep apnea Neuro: None Endocrine/Autoimmune: Type 2 diabetes, HyPOthyroidism GI: GERD, Other : Renal insuffiency HEENT: None Psych: Depression Musculoskeletal: Osteoarthritis Derm: None - Past Surgical History Past Surgical History: Yes General: Bowel surgery, Other Ortho: 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 - Present Medications Home Medications: Ambulatory Orders Medication Instructions Recorded Confirmed Levothyroxine [Synthroid] 50 mcg PO QDAC 06/28/13 06/15/19 Levothyroxine [Synthroid] 200 mcg PO QDAC 06/28/13 06/15/19 Metoprolol Succinate [Toprol Xl] 100 mg PO BID 06/28/13 06/15/19 Naproxen Sodium [Naprelan] 500 mg PO BID PRN 06/28/13 06/15/19 [place]-3 Acid Ethyl Esters [Lovaza] 4 gm PO DAILY 06/28/13 06/15/19 hydroCHLOROthiazide [Hydrodiuril] 25 mg PO DAILY 06/28/13 06/15/19 lisinopriL [Zestril] 40 mg PO DAILY 06/28/13 06/15/19 SITagliptin [Januvia] 100 mg PO DAILY #30 tablet 11/27/15 06/15/19 Pantoprazole [Protonix] 1 tab PO BID 02/27/17 06/15/19 Albuterol Sulfate [Proair Hfa 1 - 2 puffs INH Q4H PRN 06/15/19 06/15/19 Inhaler] Atorvastatin Calcium 40 mg PO DAILY 06/15/19 06/15/19 Fluticasone/Salmeterol [Advair 1 each IH BID 06/15/19 06/15/19 250-50 Diskus] Insulin Glargine [Lantus Solostar] 40 unit SQ DAILY 06/15/19 06/15/19 Ketoconazole 30 gm TP BID PRN 06/15/19 06/15/19 NIFEdipine [Nifedipine ER] 30 mg PO DAILY 06/15/19 06/15/19 Cefdinir 300 mg PO BID #20 capsule 07/29/20 Ondansetron Odt [Zofran] 4 mg TL Q6H PRN #10 tablet 07/29/20 Oxycodone HCl/Acetaminophen 1 - 2 each PO Q6H PRN #14 tablet 07/29/20 [Percocet 5-325 mg Tablet] - Allergies Allergies/Adverse Reactions: Allergies Allergy/AdvReac Type Severity Reaction Status Date / Time glimepiride [From Amaryl] Allergy Nausea Verified 09/17/18 16:07 metformin Allergy Respiratory Verified 09/17/18 16:07 weed pollen Allergy Unknown Verified 06/15/19 09:48 wool Allergy Unknown Verified 06/15/19 09:48 omeprazole AdvReac Unknown Verified 06/14/19 17:26 promethazine [From Phenergan] AdvReac Emesis Verified 09/17/18 16:07 - Social History Does the pt smoke?: No Smoking Status: Never smoker Does the pt drink ETOH?: Yes Does the pt have substance abuse?: No - Immunizations Immunizations are current?: Yes - POLST Patient has POLST: No PD ED PE NORMAL - Vitals Vital signs reviewed: Yes - General General: Alert and oriented X 3, No acute distress, Well developed/nourished - HEENT HEENT: Moist mucous membranes - Neck Neck: Supple, no meningeal sign - Cardiac Cardiac: RRR, Strong equal pulses - Respiratory Respiratory: No respiratory distress, Clear bilaterally - Abdomen Abdomen: Soft, Non distended, Other (Diffusely tender to palpation. No peritoneal signs.) - Back Back: Other (Bilateral CVA tenderness, right greater than left) - Derm Derm: Warm and dry - Extremities Extremities: No deformity - Neuro Neuro: Alert and oriented X 3 - Psych Psych: Normal mood, Normal affect Results - Vitals Vitals: Vital Signs - 24 hr 07/29/20 07/29/20 07/29/20 09:58 10:11 10:40 Temperature 36.8 C Heart Rate 71 70 70 Respiratory 16 16 18 Rate Blood Pressure 144/88 H 142/86 H 103/76 O2 Saturation 97 100 99 07/29/20 07/29/20 11:30 12:25 Temperature Heart Rate 89 66 Respiratory 16 16 Rate Blood Pressure 113/73 129/94 H O2 Saturation 99 100 Oxygen O2 Source Room air - Labs Labs: Laboratory Tests 07/29/20 07/29/20 07/29/20 10:04 10:35 10:35 WBC 13.6 H RBC 3.96 L Hgb 11.7 L Hct 35.5 L MCV 89.6 MCH 29.5 MCHC 33.0 RDW 13.3 Plt Count 304 MPV 9.8 Neut # (Auto) 11.3 H Lymph # (Auto) 1.4 L [place] # (Auto) 0.6 Eos # (Auto) 0.1 Baso # (Auto) 0.1 Absolute Nucleated RBC 0.00 Nucleated RBC % 0.0 Sodium 139 Potassium 4.0 Chloride 105 Carbon Dioxide 23 Anion Gap 11.0 BUN 41 H Creatinine 1.8 H Estimated GFR (MDRD) 28 L Glucose 149 H Calcium 9.0 Total Bilirubin 0.7 AST 13 ALT 13 Alkaline Phosphatase 65 Total Protein 6.5 L Albumin 3.6 Globulin 2.9 Albumin/Globulin Ratio 1.2 Lipase 47 Urine Color YELLOW Urine Clarity CLEAR Urine pH 5.0 Ur Specific [place] >=1.030 H Urine Protein 30 H Urine Glucose (UA) NEGATIVE Urine Ketones NEGATIVE Urine Occult Blood NEGATIVE Urine Nitrite NEGATIVE Urine Bilirubin NEGATIVE Urine Urobilinogen 0.2 (NORMAL) Ur Leukocyte Esterase SMALL H Urine RBC 0-5 Urine WBC 6-10 H Ur Squamous Epith Cells FEW Squamous Urine Bacteria Few Ur Microscopic Review INDICATED Urine Culture Comments INDICATED - Rads (name of study) CT abd.pelvis Radiology: Prelim report reviewed, EMP read contemporaneously, See rad report (No evidence of acute abdominal process. ) PD MEDICAL DECISION MAKING - ED course Complexity details: reviewed results, re-evaluated patient, considered differential, d/w patient ED course: 65-year-old female presents to the emergency department abdominal and back pain. Appears to have pyelonephritis clinically. Positive UA. Given Rocephin. Pain well controlled. No acute findings on CT scan. No evidence of sepsis. No evidence of bacteremia. No evidence of ureteral stone. Patient counseled reg arding signs and symptoms for which I believe and urgent re-evaluation would be necessary. Patient with good understanding of and agreement to plan and is comfortable going home at this time This document was made in part using voice recognition software. While efforts are made to proofread this document, sound alike and grammatical errors may occur. Departure - Departure Disposition: 01 Home, Self Care Clinical Impression: Pyelonephritis Condition: Good Instructions: ED Kidney Infec Female Follow-Up: CRYSTAL GUILLEN MD [Primary Care Provider] - Within 1 week Prescriptions: Cefdinir 300 mg PO BID #20 capsule Oxycodone HCl/Acetaminophen [Percocet 5-325 mg Tablet] 1 - 2 each PO Q6H PRN #14 tablet PRN Reason: pain Ondansetron Odt [Zofran] 4 mg TL Q6H PRN #10 tablet PRN Reason: Nausea / Vomiting Comments: Take all antibiotics until gone. Return if you worsen. Follow-up with your doctor later this week for a recheck. Do not drink alcohol or drive while on narcotic pain medicine. Note that many narcotic pain relievers also contain tylenol/acetaminophen. Please ensure that your total dose of acetaminophen from all sources does not exceed 3 grams (3000mg) per day. You may constipated on this medication, take a stool softener such as "Colace" twice a day while you are on it. Also recommend a qyfy-sze-rtrgsby laxative such as senna or MiraLAX any day that you do not have a bowel movement. If you received narcotic pain medication in the emergency department, do not drive or operate machinery for the next 24 hours. Discharge Date/Time: 07/29/20 12:46
[2020-07-29 11:10] LABS: BILIRUBIN,URINE NEGATIVE (NEGATIVE); GLUCOSE, URINE (UA) NEGATIVE (NEGATIVE); KETONES,URINE (UA) NEGATIVE (NEGATIVE); LEUKOCYTE ESTERASE, URINE SMALL (NEGATIVE); NITRITE,URINE NEGATIVE (NEGATIVE); OCCULT BLOOD,URINE NEGATIVE (NEGATIVE); PROTEIN,URINE 30 mg/dL (NEGATIVE); UROBILINOGEN,URINE 0.2 (NORMAL) E.U./dL (NORMAL)
[2020-07-29 11:16] LABS: CLARITY,URINE CLEAR (CLEAR)
[2020-07-29 11:23] LABS: BACTERIA,URINE Few /HPF (None Seen); RBC,URINE 0-5 /HPF (0-5); SQUAMOUS EPITHELIAL CELL,UR FEW Squamous (<= Few)
--- NOTE | 2020-07-29 11:29 | CT Report ---
PROCEDURE: Abdomen/Pelvis WO INDICATIONS: diffuse abd pain TECHNIQUE: Noncontrast 5 mm thick sections acquired from the diaphragms to the symphysis. 5 mm coronal and sagi ttal reformats were then performed. For radiation dose reduction, the following was used: automated exposure control, adjustment of mA and/or kV according to patient size. COMPARISON: None. FINDINGS: Image quality: Excellent. ABDOMEN: Lung bases: Lung bases are clear. Heart size is normal. Solid organs: Liver and spleen are normal in size. Gallbladder is unremarkable. Pancreas is normal in contours. No adrenal nodules. Kidneys are normal in size, without hydronephrosis or nephrolithi asis. Peritoneum and bowel: Unenhanced bowel loops demonstrate normal wall thickness and caliber. No free fluid or air. Right colonic surgical clips. Nodes and vessels: No retroperitoneal or mesenteric adenopathy by size criteria. Aorta and inferior vena cava are normal in caliber. Atherosclerotic calcifications. Miscellaneous: No ventral hernias. Previous anterior hernia repair. Surgical mesh. PELVIS: Genitourinary: Bladder wall thickness is normal. Miscellaneous: No inguinal hernias or adenopathy. Remote hysterectomy. Previous anterior rectocele not identified. Pelvic floor relaxation present. Bones: No suspicious bony lesions. No vertebral body compression fractures. Remote total left hip arthroplasty. IMPRESSION: No evidence of acute abdominal process. Reviewed by: Geoffrey Harrell MD on 07/29/2020 11:28 AM PST Approved by: Geoffrey Harrell MD on 07/29/2020 11:28 AM PST Station ID: [id number]
[2020-07-29] MEDS ORDERED: cefTRIAXone 1 GM VIAL IVP STA (12:04)
[2020-07-29 12:27] VITALS: BP 129/94
== END 2020-07-29 12:46 | disposition home or self-care (01) ==
LOC: EDUNIT# → ED 09:56
DX: N12 Tubulo-interstitial nephritis, not specified as acute or chronic (principal); E11.22 Type 2 diabetes mellitus with diabetic chronic kidney disease; I12.9 Hypertensive chronic kidney disease with stage 1 through stage 4 chronic kidney disease, or unspecified chronic kidney disease; N18.9 Chronic kidney disease, unspecified; Z79.4 Long term (current) use of insulin
CPT/HCPCS: 36415; 74176; 80053; 81001; 81003; 83690; 85025; 87086; 96374; 96375; 99284

== ENCOUNTER 2020-10-25 07:00 | Outpatient (CLI) | payer MEDICAID ==
--- NOTE | 2020-10-25 11:29 | XRAY Report ---
PROCEDURE: Hand 3 View BILAT INDICATIONS: BILATERAL HAND PAIN TECHNIQUE: 3 views of the right and left hand(s) acquired. COMPARISON: None FINDINGS: Bones: No fractures or dislocations. No suspicious bony lesions. No osseous erosive changes. No per iarticular osteopenia. Soft tissues: No suspicious soft tissue calcifications. No soft tissue swelling identified. IMPRESSION: No osseous lesion. If there are persistent symptoms or continued clinical concern for pathology, adva nced imaging (CT, MR, bone scan) should be considered for further evaluation. Reviewed by: Marjorie Torres MD, PhD on 10/25/2020 11:28 AM PST Approved by: Marjorie Torres MD, PhD on 10/25/2020 11:28 AM PST Station ID: [id number]
[2020-10-25 11:53] LABS: BASOPHILS # (AUTO) 0.1 10^3/uL (0.0-0.1); BASOPHILS % (AUTO) 0.8 %; EOSINOPHILS # (AUTO) 0.2 10^3/uL (0.0-0.7); EOSINOPHILS % (AUTO) 1.8 %; HGB - HEMOGLOBIN 12.8 g/dL (12.0-16.0); LYMPHOCYTES % (AUTO) 19.6 %; MEAN CORPUSCULAR HEMOGLOBIN 28.8 pg (27.0-31.0); MEAN CORPUSCULAR HGB CONC 31.7 g/dL (32.0-36.0); MEAN PLATELET VOLUME 10.8 fL (7.9-10.8); MONOCYTES # (AUTO) 0.6 10^3/uL (0.0-1.0); MONOCYTES % (AUTO) 5.9 %; NEUTROPHILS # (AUTO) 7.1 10^3/uL (1.5-6.6); NEUTROPHILS % (AUTO) 71.5 %; PLT - PLATELET COUNT 379 10^3/uL (130-450); RED BLOOD COUNT 4.44 10^6/uL (4.20-5.40); RED CELL DISTRIBUTION WIDTH 14.6 % (12.0-15.0)
[2020-10-25 13:12] LABS: BILIRUBIN,URINE NEGATIVE (NEGATIVE); GLUCOSE, URINE (UA) NEGATIVE (NEGATIVE); KETONES,URINE (UA) NEGATIVE (NEGATIVE); LEUKOCYTE ESTERASE, URINE SMALL (NEGATIVE); NITRITE,URINE NEGATIVE (NEGATIVE); OCCULT BLOOD,URINE TRACE-INTA (NEGATIVE); PROTEIN,URINE 100 mg/dL (NEGATIVE); UROBILINOGEN,URINE 0.2 (NORMAL) E.U./dL (NORMAL)
[2020-10-25 13:13] LABS: CLARITY,URINE HAZY (CLEAR)
[2020-10-25 13:21] LABS: BACTERIA,URINE Few /HPF (None Seen); RBC,URINE 0-5 /HPF (0-5); SQUAMOUS EPITHELIAL CELL,UR MOD Squamous (<= Few)
[2020-10-25 13:22] LABS: ALBUMIN 4.3 g/dL (3.2-5.5); ALBUMIN/GLOBULIN RATIO 1.3 (1.0-2.2); ALKALINE PHOSPHATASE 67 IU/L (42-121); ALT ALANINE AMINOTRANSFERASE 16 IU/L (10-60); AST ASPARTATE AMINOTRANSFERASE 16 IU/L (10-42); BILIRUBIN,TOTAL 0.6 mg/dL (0.2-1.0); BUN - BLOOD UREA NITROGEN 33 mg/dL (6-20); CALCIUM 9.8 mg/dL (8.5-10.3); CARBON DIOXIDE - CO2 24 mmol/L (21-32); CHLORIDE 102 mmol/L (101-111); CHOL/HDL RATIO 4.5 (<4.4); CHOLESTEROL 222 mg/dL; CREATININE 1.5 mg/dL (0.4-1.0); GLUCOSE 185 mg/dL (70-100); HDL CHOLESTEROL 49 mg/dL; TOTAL PROTEIN 7.5 g/dL (6.7-8.2)
[2020-10-25 13:51] LABS: CREATININE,URINE 110.2 mg/dL; MICROALBUM/CREATININE RATIO,UR 1538.1 ug/mg (<30.0); MICROALBUMIN,URINE 169.5 mg/dL (0-300.0)
[2020-10-25 14:13] LABS: HEMOGLOBIN A1c% 7.8 % (4.27-6.07)
[2020-10-25 16:28] LABS: LDL CHOLESTEROL,DIRECT 114 mg/dL; LDLD/HDL RATIO 2.3 (<4.4)
== END 2020-10-25 23:59 | disposition home or self-care (01) ==
LOC: DI.WCP 07:00
PROVIDERS: ATTEND Family Medicine
DX: M79.644 Pain in right finger(s) (principal); M79.645 Pain in left finger(s); E11.65 Type 2 diabetes mellitus with hyperglycemia; Z79.4 Long term (current) use of insulin; R82.90 Unspecified abnormal findings in urine
CPT/HCPCS: 36415; 80053; 80061; 81001; 82043; 82570; 83036; 83721; 85025; 87086

== ENCOUNTER 2021-04-02 10:06 | Outpatient (CLI) | payer MEDICARE, MEDICAID ==
[2021-04-02 18:05] LABS: BASOPHILS # (AUTO) 0.1 10^3/uL (0.0-0.1); BASOPHILS % (AUTO) 0.8 %; EOSINOPHILS # (AUTO) 0.1 10^3/uL (0.0-0.7); EOSINOPHILS % (AUTO) 1.4 %; HCT - HEMATOCRIT 41.5 % (37.0-47.0); HGB - HEMOGLOBIN 13.1 g/dL (12.0-16.0); LYMPHOCYTES # (AUTO) 2.1 10^3/uL (1.5-3.5); LYMPHOCYTES % (AUTO) 23.5 %; MEAN CORPUSCULAR HEMOGLOBIN 29.8 pg (27.0-31.0); MEAN CORPUSCULAR HGB CONC 31.6 g/dL (32.0-36.0); MEAN CORPUSCULAR VOLUME 94.5 fL (81.0-99.0); MEAN PLATELET VOLUME 10.9 fL (7.9-10.8); MONOCYTES # (AUTO) 0.5 10^3/uL (0.0-1.0); MONOCYTES % (AUTO) 5.3 %; NEUTROPHILS # (AUTO) 6.1 10^3/uL (1.5-6.6); NEUTROPHILS % (AUTO) 68.7 %; PLT - PLATELET COUNT 337 10^3/uL (130-450); RED BLOOD COUNT 4.39 10^6/uL (4.20-5.40); RED CELL DISTRIBUTION WIDTH 14.8 % (12.0-15.0); WHITE BLOOD COUNT 8.8 x10^3/uL (4.8-10.8)
[2021-04-02 18:35] LABS: ALBUMIN 4.1 g/dL (3.2-5.5); ALBUMIN/GLOBULIN RATIO 1.2 (1.0-2.2); ALKALINE PHOSPHATASE 63 IU/L (42-121); ALT ALANINE AMINOTRANSFERASE 20 IU/L (10-60); AST ASPARTATE AMINOTRANSFERASE 24 IU/L (10-42); BILIRUBIN,TOTAL 0.7 mg/dL (0.2-1.0); BUN - BLOOD UREA NITROGEN 32 mg/dL (6-20); CALCIUM 9.1 mg/dL (8.5-10.3); CARBON DIOXIDE - CO2 27 mmol/L (21-32); CHLORIDE 98 mmol/L (101-111); CHOL/HDL RATIO 4.7 (<4.4); CHOLESTEROL 232 mg/dL; CREATININE 1.7 mg/dL (0.4-1.0); GFR - MDRD 30 (>89); GLUCOSE 169 mg/dL (70-100); HDL CHOLESTEROL 49 mg/dL; LDL CHOLESTEROL,CALCULATED 104 mg/dL; LDL/HDL RATIO 2.1 (<4.4); POTASSIUM 3.1 mmol/L (3.5-5.0); SODIUM 138 mmol/L (135-145); TOTAL PROTEIN 7.4 g/dL (6.7-8.2); TRIGLYCERIDES 395 mg/dL; VLDL CHOLESTEROL 79 mg/dL
[2021-04-02 19:09] LABS: THYROID STIMULATING HORMONE 65.19 uIU/mL (0.34-5.60)
[2021-04-02 20:07] LABS: FREE T4 (FREE THYROXINE) 0.4 ng/dL (0.58-1.64)
[2021-04-02 20:36] LABS: ESTIMATED AVERAGE GLUCOSE 200 mg/dL (70-100); HEMOGLOBIN A1c% 8.6 % (4.27-6.07)
== END 2021-04-02 10:07 | disposition home or self-care (01) ==
LOC: LAB.N 10:06
PROVIDERS: ATTEND Family Medicine
DX: E11.8 Type 2 diabetes mellitus with unspecified complications (principal); Z79.4 Long term (current) use of insulin
CPT/HCPCS: 36415; 80053; 80061; 82043; 82570; 83036; 83721; 84439; 84443; 85025

== ENCOUNTER 2021-04-25 09:56 | Outpatient (CLI) | payer MEDICARE, MEDICAID ==
[2021-04-25 12:00] LABS: CALCIUM 9.5 mg/dL (8.5-10.3); CREATININE 1.5 mg/dL (0.4-1.0); POTASSIUM 3.7 mmol/L (3.5-5.0)
== END 2021-04-25 23:59 | disposition home or self-care (01) ==
LOC: LAB.N 09:56
PROVIDERS: ATTEND Physician Assistant Medical
DX: R60.0 Localized edema (principal)
CPT/HCPCS: 36415; 80048

== ENCOUNTER 2021-05-02 07:00 | Outpatient (CLI) | payer MEDICARE, MEDICAID ==
--- NOTE | 2021-05-03 10:51 | Ultrasound Report ---
PROCEDURE: Retroperitoneal INDICATIONS: CHRONIC STAGE 3 KIDNEY DISEASE TECHNIQUE: Real-time scanning was performed of the retroperitoneal organs, with image documentation. COMPARISON: CT Abdomen Pelvis 07/29/20 FINDINGS: Kidneys: Right kidney measures 10.3 cm long; left kidney measures 11.4 cm long. Right renal cortic al thickness is 1.5 cm; left renal cortical thickness is 1.6 cm. Kidneys demonstrate mild increased e chogenicity bilaterally. There is mild right hydronephrosis. There is an ill-defined area of lobulati on within the inferior left kidney. It is poorly characterized. Bladder: Prevoid volume 247 cc. Post void residual 71 cc. Bilateral ureteral jets are noted. IMPRESSION: 1. Mild right hydronephrosis. Source of obstruction is not identified. CT may be obtained as clini loco indicated. 2. Ill defined left inferior pole lobulation. This could be a cyst/mass or cortical lobulation. It is poorly visualized and no abnormality is identified on the 07/29/[address] or 3 fri ultrasound may be obtained for further evaluation of potential mass. 3. Echogenic kidneys consistent with medical renal disease. Reviewed by: Kayy Reyez MD on 05/03/2021 10:50 AM PDT Approved by: Kayy Reyez MD on 05/03/2021 10:50 AM PDT Station ID: [id number]
== END 2021-05-02 23:59 | disposition home or self-care (01) ==
LOC: DI 07:00
PROVIDERS: ATTEND Family Medicine
DX: N18.30 Chronic kidney disease, stage 3 unspecified (principal); N13.30 Unspecified hydronephrosis; R93.422 Abnormal radiologic findings on diagnostic imaging of left kidney

== ENCOUNTER 2021-05-02 15:31 | Outpatient (CLI) | payer MEDICARE, MEDICAID ==
[2021-05-02] MEDS ORDERED: IOPAMIDOL-300 50 ML VIAL ONE (16:49)
--- NOTE | 2021-05-02 18:01 | CT Report ---
PROCEDURE: SOFT TISSUE NECK W INDICATIONS: LYMPHADENOPATHY, HX OF THYROID CA CONTRAST: IV CONTRAST: Isovue 300 ml: 90 TECHNIQUE: After the administration of intravenous contrast, 3.0 mm axial sections acquired from the sella to th e aortic arch. Additional oblique axial 3.0 mm sections acquired through the pharynx. 3 mm thick co steven reformats were generated. For radiation dose reduction, the following was used: automated exp osure control, adjustment of mA and/or kV according to patient size. COMPARISON: None. FINDINGS: Image quality: Excellent. Lymph nodes: Scrutiny is given to the area of clinical concern as marked by the patient involving the left neck, as on series 3 image 58. Within this region, there is a borderline prominent left level 2 lymph node seen, as on series 3 image 67 that measures 7 x 10 mm. It is noted that the normal appear ing left submandibular gland is seen immediately adjacent to the soft tissue marker as well. Borderline prominent lymph nodes are seen elsewhere within the neck. However, no [place] enlargement or suspicious appearing lymph nodes are seen. Vessels: Visualized vasculature appears patent. Atherosclerotic calcification is seen. Neck spaces: The oropharynx, nasopharynx, and pharynx demonstrate no mucosal lesions. The vocal cor ds, false vocal cords, pyriform sinuses, epiglottis, vallecula, and tongue base all appear normal. E xtramucosal spaces appear unremarkable. Glands: The parotid and submandibular glands appear normal. The thyroid has been removed. Miscellaneous: Visualized brain and orbits appear normal. Lung apices appear clear. Superficial so ft tissues appear normal. Bones: No suspicious bony lesions. Visualized sinuses and mastoids appear unremarkable. Relatively prominent cervical spine degenerative changes are seen, which are worst inferiorly. IMPRESSION: At the area of clinical concern, there is a borderline prominent lymph node seen. However, the palpab le focus may be related to the normal left submandibular gland. Several nonenlarged lymph nodes are seen on both sides, which are most likely benign. However, in thi s patient with a given history of thyroid cancer, differential diagnosis would include metastatic dis ease. Please consider short-term follow-up versus nuclear medicine radioiodine scan for further evaluation. Status post thyroidectomy. Reviewed by: Antonino Nicole MD on 05/02/2021 4:59 PM AKDT Approved by: Antonino Nicole MD on 05/02/2021 4:59 PM TRISTAN Station ID: [id number]
[2021-05-02] MEDS ORDERED: IOPAMIDOL-300 50 ML VIAL IVP ONE (19:59)
== END 2021-05-02 15:32 | disposition home or self-care (01) ==
LOC: DI 15:31
PROVIDERS: ATTEND Family Medicine
DX: R59.1 Generalized enlarged lymph nodes (principal); Z85.850 Personal history of malignant neoplasm of thyroid; E89.0 Postprocedural hypothyroidism
CPT/HCPCS: 70491; Q9967

== ENCOUNTER 2021-05-17 13:31 | Outpatient (CLI) | payer MEDICARE, MEDICAID ==
[2021-05-17 18:29] LABS: CALCIUM 9.5 mg/dL (8.5-10.3); CREATININE 1.9 mg/dL (0.4-1.0); POTASSIUM 3.8 mmol/L (3.5-5.0)
== END 2021-05-17 23:59 | disposition home or self-care (01) ==
LOC: LAB.WCP 13:31
PROVIDERS: ATTEND Family Medicine
DX: I10 Essential (primary) hypertension (principal); N28.89 Other specified disorders of kidney and ureter; Z85.850 Personal history of malignant neoplasm of thyroid
CPT/HCPCS: 36415; 80048; 86800

== ENCOUNTER 2021-05-22 07:46 | Outpatient (CLI) | payer MEDICARE, MEDICAID ==
[2021-05-22 08:36] LABS: CREATININE 1.5 mg/dL (0.4-1.0)
[2021-05-22] MEDS ORDERED: IOPAMIDOL-300 100 ML VIAL ONE (09:12)
[2021-05-22] MEDS ORDERED: IOPAMIDOL-300 100 ML VIAL IVP ONE (09:26)
--- NOTE | 2021-05-22 13:51 | CT Report ---
PROCEDURE: IVP INDICATIONS: RENAL MASS, RIGHT HYDRONEPHROSIS CONTRAST: 100 mL's iodine contrast. TECHNIQUE: After the administration of oral and intravenous contrast, 5 mm thick sections acquired from the diap hragms to the symphysis. 5 mm thick coronal and sagittal reformats were acquired. For radiation dos e reduction, the following was used: automated exposure control, adjustment of mA and/or kV accordin g to patient size. COMPARISON: None. FINDINGS: Image quality: Excellent. Lung bases: Lung bases are clear. Heart size is normal. Urinary system: Both kidneys are normal in size and enhancement. Contrast-filled renal calyces are normal in morphology. Contrast filled portions of both ureters are normal in caliber. Bladder wall thickness is normal. Solid organs: Liver and spleen are normal in size and enhancement. Gallbladder is normal. Biliary system is non dilated. Pancreas enhances normally. No adrenal nodules. Peritoneum and bowel: Small hiatal hernia. Bowel loops demonstrate normal wall thickness and caliber . No free fluid or air. Nodes and vessels: No retroperitoneal or mesenteric adenopathy by size criteria. Aorta and inferior vena cava are normal in size. Abdominal wall: No ventral hernias. Anterior abdominal wall mesh is seen. Pelvis: No pathologic free pelvic fluid. No inguinal hernias or adenopathy. Bones: No suspicious bony lesions. No vertebral body compression fractures. IMPRESSION: 1. No acute or significant abnormality. 2. No hydronephrosis on the right. 3. No renal mass identified. Reviewed by: Anthony Tavarez on 05/22/2021 1:50 PM PDT Approved by: Anthony Tavarez on 05/22/2021 1:50 PM PDT Station ID: [id number]
== END 2021-05-22 07:47 | disposition home or self-care (01) ==
LOC: DI 07:46
PROVIDERS: ATTEND Family Medicine
DX: N28.89 Other specified disorders of kidney and ureter (principal); N13.30 Unspecified hydronephrosis
CPT/HCPCS: 36415; 74178; 82565; Q9967

== ENCOUNTER 2021-06-13 11:24 | Outpatient (CLI) | payer MEDICARE, MEDICAID | END 2021-06-13 11:25 | disposition home or self-care (01) | LOC: DI 11:24 | PROVIDERS: ATTEND Family Medicine | DX: I11.9 Hypertensive heart disease without heart failure (principal) | CPT/HCPCS: 93306 ==

== ENCOUNTER 2021-06-14 13:05 | Outpatient (CLI) | payer MEDICARE, MEDICAID ==
--- NOTE | 2021-06-14 13:49 | CT Report ---
PROCEDURE: HEAD WO INDICATIONS: CONTUSION TO HEAD TECHNIQUE: Noncontrast 4.5 mm thick angled axial sections acquired from the foramen magnum to the vertex. For r adiation dose reduction, the following was used: automated exposure control, adjustment of mA and/or kV according to patient size. COMPARISON: None. FINDINGS: Image quality: Excellent. CSF spaces: Basal cisterns are patent. No extra-axial fluid collections. Ventricles are normal in size and shape. Brain: No midline shift. No intracranial masses or hemorrhage. Pino-white matter interface is norm al. Skull and face: Calvarium and visualized facial bones are intact, without suspicious lesions. Left f rontal scalp hematoma. Sinuses: Visualized sinuses and mastoids are clear. IMPRESSION: 1. No acute intracranial process. 2. Left frontal scalp hematoma. Reviewed by: Kayy Reyez MD on 06/14/2021 1:48 PM PDT Approved by: Kayy Reyez MD on 06/14/2021 1:48 PM PDT Station ID: [id number]
== END 2021-06-14 13:06 | disposition home or self-care (01) ==
LOC: DI 13:05
PROVIDERS: ATTEND Family Medicine
DX: S00.83XA Contusion of other part of head, initial encounter (principal)

== ENCOUNTER 2021-07-10 09:26 | Outpatient (CLI) | payer MEDICARE, MEDICAID ==
--- NOTE | 2021-07-11 09:52 | Mammography Report ---
BILATERAL DIGITAL SCREENING MAMMOGRAM 3D/2D: 07/10/2021 CLINICAL: Routine screening. Comparison is made to exams dated: 01/03/2015 mammogram, 07/23/2013 mammogram, and 10/31/2010 mammogram - [facility]. There are scattered fibroglandular elements in both breasts. There is a biopsy clip in the right breast. No significant masses, calcifications, or other findings are seen in either breast. There has been no significant interval change. IMPRESSION: NEGATIVE There is no mammographic evidence of malignancy. A 1 year screening mammogram is recommended. This exam was interpreted at Station ID: [id number]. NOTE: For mammograms, a report in lay terms will be sent to the patient. Approximately 15% of breast malignancies will not be visualized mammographically. In the management of a palpable breast mass, a negative mammogram must not discourage biopsy of a clinically suspicious lesion. Electronically Signed By: Julius Lucas M.D. ddp/penrad:07/10/2021 11:12:29 ACR BI-RADS Category 1: Negative [id number] PARENCHYMAL PATTERN: (A) - The breast(s) demonstrate(s) scattered fibroglandular densities. BI-RADS CATEGORY: (1) - 1 RECOMMENDATION: (ANNUAL) - Recommend routine annual screening mammography. [id number] 1 year screening LATERALITY: (B)
== END 2021-07-10 09:27 | disposition home or self-care (01) ==
LOC: DI.N 09:26
DX: Z12.31 Encounter for screening mammogram for malignant neoplasm of breast (principal)

== ENCOUNTER 2021-12-24 09:11 | Outpatient (CLI) | payer MEDICARE, OTHER ==
[2021-12-24 12:19] LABS: BASOPHILS # (AUTO) 0.1 10^3/uL (0.0-0.1); BASOPHILS % (AUTO) 0.7 %; EOSINOPHILS # (AUTO) 0.2 10^3/uL (0.0-0.7); EOSINOPHILS % (AUTO) 1.9 %; HCT - HEMATOCRIT 33.6 % (37.0-47.0); HGB - HEMOGLOBIN 10.9 g/dL (12.0-16.0); LYMPHOCYTES % (AUTO) 20.6 %; MEAN CORPUSCULAR HEMOGLOBIN 28.3 pg (27.0-31.0); MEAN CORPUSCULAR HGB CONC 32.4 g/dL (32.0-36.0); MEAN CORPUSCULAR VOLUME 87.3 fL (81.0-99.0); MEAN PLATELET VOLUME 10.9 fL (7.9-10.8); MONOCYTES # (AUTO) 0.6 10^3/uL (0.0-1.0); MONOCYTES % (AUTO) 6.6 %; NEUTROPHILS # (AUTO) 6.7 10^3/uL (1.5-6.6); NEUTROPHILS % (AUTO) 69.9 %; PLT - PLATELET COUNT 397 10^3/uL (130-450); RED BLOOD COUNT 3.85 10^6/uL (4.20-5.40); RED CELL DISTRIBUTION WIDTH 14.7 % (12.0-15.0); WHITE BLOOD COUNT 9.5 x10^3/uL (4.8-10.8)
[2021-12-24 12:34] LABS: BILIRUBIN,TOTAL 0.5 mg/dL (0.2-1.0); CALCIUM 9.5 mg/dL (8.5-10.3); CREATININE 1.8 mg/dL (0.4-1.0); POTASSIUM 3.4 mmol/L (3.5-5.0); TOTAL PROTEIN 7.9 g/dL (6.7-8.2)
== END 2021-12-24 09:12 | disposition home or self-care (01) ==
LOC: LAB.N 09:11
PROVIDERS: ATTEND Nurse Practitioner
DX: E87.1 Hypo-osmolality and hyponatremia (principal); D64.9 Anemia, unspecified
CPT/HCPCS: 36415; 80053; 85025